=== PATIENT | male | born 1965 | race Caucasian/White ===

== ENCOUNTER → 2021-02-20 | Outpatient (CLI) | payer OTHER ==
--- NOTE | 2021-02-20 09:43 | US ---
EXAMINATION TYPE: US liver DATE OF EXAM: 02/20/2021 COMPARISON: NONE CLINICAL HISTORY: R94.5 ABN LIVER FUNCTION TEST. EXAM MEASUREMENTS: Liver Length: 20.1 cm Gallbladder Wall: 0.2 cm CBD: 0.4 cm Right Kidney: 11.7 x 5.3 x 5.7 cm Pancreas: obscured by overlying midline bowel gas Liver: enlarged, attenuating, increased echogenicity, heterogeneous Gallbladder: wnl Evidence for sonographic Villegas's sign: no CBD: visualized portions wnl, limited by overlying bowel gas Right Kidney: wnl IMPRESSION: Hepatic steatosis noted.
== END | disposition home or self-care (01) ==
LOC: RADUSWWP 09:13
PROVIDERS: ATTEND Family Medicine
DX: K76.0 Fatty (change of) liver, not elsewhere classified (principal)
CPT/HCPCS: 76705

== ENCOUNTER → 2021-05-15 | Day surgery (SDC) | payer OTHER ==
[2021-05-13 14:10] VITALS: BMI 41.8
[~2021-05-15] MED LIST: LIDOCAINE 1% (10MG/ML) FOR IV START INTRADERMA PRN; LIDOCAINE 1% INJ 10MG/ML (20 ML MDV) ONE; PROPOFOL 10 MG/ML 20 ML VIAL IV ONE
[2021-05-15 07:17] VITALS: TEMP 97.2
[2021-05-15 07:27] LABS: Glucose,Whole Blood 189 mg/dL (75-99)
[2021-05-15] MEDS: LACTATED RINGERS 1,000 ML IV SCH ×2 (07:29→07:45)
--- NOTE | 2021-05-15 07:52 | P.GSHP ---
History of Present Illness H&P Date: 05/15/21 Chief Complaint: Screening Colonoscopy This is a 55-year-old male presents today for screening colonoscopy. Patient denies any significant GI complaints. This is his initial screening colonoscopy Past Medical History Past Medical History: Diabetes Mellitus History of Any Multi-Drug Resistant Organisms: None Reported Additional Past Surgical History / Comment(s): cyst removed from neck, Past Anesthesia/Blood Transfusion Reactions: No Reported Reaction Smoking Status: Current every day smoker - Past Family History Mother Family Medical History: Cancer Medications and Allergies Home Medications Medication Instructions Recorded Confirmed Type Atorvastatin [Lipitor] 80 mg PO DAILY 05/13/21 05/15/21 History Glimepiride [Amaryl] 2 mg PO BID 05/13/21 05/15/21 History metFORMIN HCL [Glucophage] 500 mg PO BID 05/13/21 05/15/21 History Allergies Allergy/AdvReac Type Severity Reaction Status Date / Time No Known Allergies Allergy Verified 05/15/21 07:08 Surgical - Exam Vital Signs Temp Pulse Resp BP Pulse Ox 97.2 F L 93 18 129/83 96 05/15/21 07:15 05/15/21 07:15 05/15/21 07:15 05/15/21 07:15 05/15/21 07:15 - General well developed, well nourished, no distress - Eyes PERRL - ENT normal pinna - Neck no masses - Respiratory normal expansion - Cardiovascular Rhythm: regular - Abdomen Abdomen: soft, non tender Results - Labs Abnormal Lab Results - Last 24 Hours (Table) 05/15/21 Range/Units 07:24 POC Glucose (mg/dL) 189 H (75-99) mg/dL Assessment and Plan Assessment: We will perform screening colonoscopy
--- NOTE | 2021-05-15 08:01 | P.OP ---
Date of Procedure: 05/15/21 Preoperative Diagnosis: Screening colonoscopy Postoperative Diagnosis: Diverticulosis Sigmoid colon polyp Procedure(s) Performed: Colonoscopy Anesthesia: MAC Surgeon: Hamilton Reeves Pathology: other (Sigmoid colon polyp) Condition: stable Disposition: PACU Description of Procedure: Patient's placed on the endoscopy table in the lateral position. He received IV sedation. Digital rectal exam was performed which revealed a few external hemorrhoids. Flexible colonoscope was then placed patient anus and passed throughout the entire colon. The ileocecal valve was visually is. The cecum, ascending and transverse colon appeared normal. In the descending; there was moderate diverticular changes. In the sigmoid colon there was another polyp seen. This is removed with the cold forcep. Scope summer back the rectum and this appeared normal. Scope withdrawn for patient.
[2021-05-15 08:09] VITALS: RESP 16
[2021-05-15 08:47] VITALS: BP 106/68; PULSE 88
== END | disposition home or self-care (01) ==
LOC: ORWHC2ENDO 06:52
PROVIDERS: ATTEND Surgery
DX: Z12.11 Encounter for screening for malignant neoplasm of colon (principal); K57.90 Diverticulosis of intestine, part unspecified, without perforation or abscess without bleeding; E78.5 Hyperlipidemia, unspecified; F17.200 Nicotine dependence, unspecified, uncomplicated; E11.9 Type 2 diabetes mellitus without complications; Z79.84 Long term (current) use of oral hypoglycemic drugs; D12.5 Benign neoplasm of sigmoid colon
CPT/HCPCS: 45380; 88305; J2001; J2704

== ENCOUNTER → 2023-04-19 | Outpatient (CLI) | payer OTHER ==
--- NOTE | 2023-04-19 09:08 | US ---
EXAMINATION TYPE: US abdomen complete DATE OF EXAM: 04/19/2023 COMPARISON: US CLINICAL INDICATION: Male, 57 years old with history of K85.90 PANCREATITIS; Pt states recent abnorma l labs, denies pain TECHNIQUE: Multiple sonographic images of the abdomen are obtained. FINDINGS: EXAM MEASUREMENTS: Liver Length: 22.0 cm Gallbladder Wall: 0.4 cm CBD: 0.5 cm Spleen: 14.3 cm Right Kidney: 12.2 x 5.2 x 6.0 cm Left Kidney: 12.0 x 5.2 x 5.2 cm NUTRITIONISTS NOTES: Morbidly obese opt, difficult visualization Pancreas: 2mm duct visualized, tail obscured by overlying bowel gas Liver: Enlarged, heterogeneous Gallbladder: Contracted, pt states he is NPO, wall thickened with possible small stone vs. sludge ba ll Evidence for sonographic Villegas's sign: NO CBD: wnl Spleen: Enlarged Right Kidney: No evidence of hydro Left Kidney: No evidence of hydro Upper IVC: wnl Abd Aorta: Proximal portion wnl, mid and distal gassed out The liver is with coarsened echotexture. No dilated ducts, cysts or solid masses.. The intrahepatic portion of the IVC and proximal abdominal aorta are within normal limits. There is no evidence of ch olelithiasis. Common bile duct is unremarkable. The visualized portions of the pancreas are homogen ous. The spleen is unremarkable. Kidneys are symmetric and free of hydronephrosis. No renal lesion s are seen. IMPRESSION: 1. No evidence for acute process. 2. Cholelithiasis versus biliary sludge.. 3. Coarse echotexture to the liver correlate for hepatocellular disease. 4. Mild splenomegaly.
== END | disposition home or self-care (01) ==
LOC: RADUSWWP 08:07
PROVIDERS: ATTEND Family Medicine
DX: K76.89 Other specified diseases of liver (principal); K80.20 Calculus of gallbladder without cholecystitis without obstruction; R74.01 Elevation of levels of liver transaminase levels; R16.1 Splenomegaly, not elsewhere classified; K85.90 Acute pancreatitis without necrosis or infection, unspecified
CPT/HCPCS: 76700